=== PATIENT | female | born 1960 | race Two or more races ===

== ENCOUNTER 2019-04-26 13:09 | Outpatient (CLI) | payer OTHER | END 2019-04-26 13:22 | disposition home or self-care (01) | LOC: LAB 13:09 | DX: N30.00 Acute cystitis without hematuria (principal) ==

== ENCOUNTER 2019-05-29 05:55 | Day surgery (SDC) | payer OTHER ==
[~2019-05-29 05:55] MED LIST: CRESTOR20 MG PO; ENALAPRIL MALEA10 MG PO; JANUVIA100 MG PO; JARDIANCE25 MG PO; METOPROLOL SUCC50 MG PO; SYNTHROID175 MCG PO
[2019-05-29] MEDS ORDERED: LEVAQUIN500 MG PO (09:34)
[2019-05-29] MEDS ORDERED: PERCOCET 5-3251 EACH PO (09:35)
== END 2019-05-29 13:20 | disposition home or self-care (01) ==
LOC: CIR.AMB 05:55
DX: N81.11 Cystocele, midline (principal); N39.3 Stress incontinence (female) (male)